=== PATIENT | female | born 1935 | race African-American/Black ===

== ENCOUNTER 2018-02-11 07:09 | Observation (INO) | payer MEDICARE ==
--- NOTE | 2018-02-11 07:44 | RAD ---
SINGLE VIEW OF THE CHEST: COMPARISON: 03/18/17. HISTORY: Chest pain. FINDINGS: A single view of the chest shows a normal-size cardiomediastinal silhouette with atherosclerotic calc ifications in the aorta. There is no evidence of consolidation, mass, or pleural effusion. The bone s are unremarkable. IMPRESSION: No evidence of acute cardiopulmonary disease. POS: [facility]
[2018-02-11] MEDS ORDERED: Acetaminophen 325 MG TAB ONE (07:51)
[2018-02-11 07:58] LABS: Hemoglobin 13.4 g/dL (12.0-16.0); Mean Corpuscular Hemoglobin 30.8 pg (27.0-31.0); Mean Corpuscular Volume 93.3 fL (78.0-98.0); Mean Platelet Volume 7.8 fL (7.4-10.4); Platelet Count 201 thou/uL (130-400); RBC Distribution Width 12.5 % (11.5-14.5); Red Blood Cell (RBC) Count 4.35 mill/uL (4.20-5.40); White Blood Cell (WBC) Count 4.7 thou/uL (4.8-10.8)
[2018-02-11 08:11] LABS: ALT (SGPT) 29 U/L (8-55); AST (SGOT) 20 U/L (5-34); Albumin 4.2 g/dL (3.4-4.8); Alkaline Phosphatase 56 U/L (40-150); Anion Gap 13 mmol/L (10-20); BUN (Urea Nitrogen) 12 mg/dL (9.8-20.1); Bilirubin, Total 0.4 mg/dL (0.2-1.2); Calc. Creatinine Clearance 0 mL/min (70-130); Calcium 10.4 mg/dL (7.8-10.44); Carbon Dioxide 28 mmol/L (23-31); Chloride 104 mmol/L (98-107); Estimated GFR-MDRD 70; Globulin 3.5 g/dL (2.4-3.5); Glucose 134 mg/dL (83-110); Protein, Total 7.7 g/dL (6.0-8.3); Sodium 141 mmol/L (136-145)
[2018-02-11 08:15] LABS: Troponin I 0.011 ng/mL (< 0.028)
[2018-02-11 08:19] LABS: Eosinophils 1 % (0-10); Lymphocytes 61 % (21-51); MDiff Complete? YES; Monocytes 2 % (0-10); Neutrophil 35 % (42-75); Reactive Lymphocytes 1 % (0-10)
[2018-02-11 10:49] LABS: Troponin I 0.024 ng/mL (< 0.028)
[2018-02-11 11:02] VITALS: BMI 27.4
[2018-02-11] MEDS ORDERED: Dextrose 5% in Water 1,000 ML IV PRN (11:42)
[2018-02-11] MEDS ORDERED: cloNIDine 0.1 MG TAB PO PRN (11:42)
[2018-02-11] MEDS ORDERED: hydrALAZINE 20 MG/ML VIAL SLOW IVP PRN (11:42)
[2018-02-11] MEDS ORDERED: Milk Of Magnesia 30 ML UDCUP PO PRN (11:42)
[2018-02-11] MEDS ORDERED: Ondansetron ODT 4 MG TAB PO PRN (11:42)
[2018-02-11] MEDS ORDERED: Ondansetron HCl/PF 4 MG/2 ML Vial IVP PRN (11:42)
[2018-02-11] MEDS ORDERED: Loratadine 10 MG TAB PO PRN (11:42)
[2018-02-11] MEDS ORDERED: Loperamide HCl 2 MG CAP PO PRN (11:42)
[2018-02-11] MEDS ORDERED: Dextrose 50% Abboject 50 ML SYRINGE SLOW IVP PRN (11:42)
[2018-02-11] MEDS ORDERED: Zolpidem Tartrate 5 MG TAB PO PRN (11:42)
[2018-02-11] MEDS ORDERED: Artificial Tear Sol 15 ML BOT EA EYE PRN (11:42)
[2018-02-11] MEDS ORDERED: HumaLOG 300 UNITS/3 ML VIAL SC PRN ×2 (11:42)
[2018-02-11] MEDS ORDERED: Sodium Chloride 0.65% Nasal 44 ML BOT EA NARE PRN (11:42)
[2018-02-11] MEDS ORDERED: Acetaminophen 325 MG TAB PO PRN (11:42)
[2018-02-11] MEDS ORDERED: Eucerin (Mineral Oil/Petrolatum,White) 30 gm Jar TOP PRN (11:42)
[2018-02-11] MEDS ORDERED: Mag-Al 1200 mg/1200 mg/30 ML UDCUP PO PRN (11:42)
[2018-02-11] MEDS ORDERED: Senokot 8.6 MG TAB PO PRN (11:42)
[2018-02-11] MEDS ORDERED: Nitroglycerin 0.4 MG TAB (25 Tab Bottle) SL PRN (11:42)
[2018-02-11] MEDS ORDERED: Diabetic Tussin 200 MG/10 ML UDCUP PO PRN (11:42)
[2018-02-11] MEDS ORDERED: Lisinopril 10 MG TAB PO SCH (12:00)
[2018-02-11] MEDS ORDERED: cloNIDine 0.2 MG TAB PO SCH (12:15)
--- NOTE | 2018-02-11 12:38 | HP ---
PRIMARY CARE PHYSICIAN: Dr. Marisol Renae. REASON FOR ADMISSION: Chest pain. HISTORY OF PRESENT ILLNESS: An 82-year-old -[place] female who has underlying history of hyp ertension, diabetes type 2, gastroesophageal reflux disease and dyslipidemia, who came to emergency r oom for evaluation of chest pain. Patient reports that chest pain she was experiencing in substernal and little bit left side, which was sharp in nature. Normally, patient gets pain which is gradually getting worse and gradually getting better, but this pain was acute and sharp in nature. It was rep roducible pain in her chest wall. She reports associated nausea, but no vomiting. There was no rela tion of chest pain with food, respiration or activity. She denies any radiation of pain. She denies any fever, chills, cough. She denies any unusual heavy lifting. The patient was advised by paramed ics to take aspirin that did not relieve her pain. Paramedics gave her nitroglycerin that did not im prove her pain. She was brought to the ER. At that time, she was having similar intensity pain. Deneen cee was hypertensive in the emergency room. Routine evaluation showed nonspecific ST-T changes in ante rolateral lead. Her chest x-ray was normal. Patient's routine blood test was also unremarkable. We are admitting this patient in hospital for rule out acute coronary syndrome. This patient had a stress test done in 2016. At that time, it was normal. Patient is following Dr. Alegre who is her animal chiropractor. The patient denies any headaches. She denies any focal motor or s ensory symptoms. She denies any orthopnea, PND or leg swelling. She denies any dizziness. She does feel intermittent palpitation and for that reason, Dr. Alegre did Holter monitoring couple of time s, which was unremarkable per patient. The patient denies any constipation, diarrhea, melena or james tochezia. She denies any UTI symptoms. REVIEW OF SYSTEMS: The following complete review of systems was negative, unless otherwise mentioned in the HPI or below: Constitutional: Weight loss or gain, ability to conduct usual activities. Skin: Rash, itching. Eyes: Double vision, pain. ENT/Mouth: Nose bleeding, neck stiffness, pain, tenderness. Cardiovascular: Palpitations, dyspnea on exertion, orthopnea. Respiratory: Shortness of breath, wheezing, cough, hemoptysis, fever or night sweats. Gastrointestinal: Poor appetite, abdominal pain, heartburn, nausea, vomiting, constipation, or diarr hea. Genitourinary: Urgency, frequency, dysuria, nocturia. Musculoskeletal: Pain, swelling. Neurologic/Psychiatric: Anxiety, depression. Allergy/Immunologic: Skin rash, bleeding tendency. Please see my HPI for pertinent positive and negative. All other review of systems reviewed and nega tive except as mentioned in the HPI. ALLERGIES: VICODIN. CURRENT HOME MEDICATIONS: Aspirin 325 mg p.o. daily, clonidine 0.2 mg p.o. b.i.d., diazepam 10 mg p. o. daily, Cartia XT 240 mg p.o. b.i.d., Amaryl 2 mg p.o. daily, lisinopril 10 mg p.o. b.i.d., metform in 500 mg p.o. b.i.d., Toprol-XL 50 mg p.o. b.i.d., minoxidil 10 mg in the morning and 5 mg in the ev ening, Lyrica 50 mg p.o. b.i.d., Zocor 10 mg p.o. at bedtime. PAST MEDICAL HISTORY: Hypertension, diabetes type 2, dyslipidemia, gastroesophageal reflux disease. PAST PSYCHIATRIC HISTORY: Anxiety. PAST SURGICAL HISTORY: Hysterectomy, cholecystectomy, umbilical hernia repair, bladder surgery. SOCIAL HISTORY: Patient lives at home. She is . No history of tobacco, alcohol or illicit d rug abuse. FAMILY HISTORY: Mother from heart attack by age of 75 and hypertension runs among several famil y members. EMERGENCY ROOM COURSE: The patient is given Tylenol 975 mg. PHYSICAL EXAMINATION: VITAL SIGNS: On arrival, blood pressure 175/86, pulse 68, respiratory rate 18, temperature 98.1, sat uration 92% on room air, weight 74.8 kilograms. GENERAL: Patient is currently alert, awake, hypertensive, no obvious acute distress. HEAD: Normocephalic, atraumatic. EYES: Pupils round, reactive to light. Extraocular muscle intact. ENT: Oropharynx within normal limits. Moist mucous membranes, no oral lesion, no pharyngeal erythem a, no exudate. NECK: Supple, no JVD, no thyromegaly, no carotid bruit. LUNGS: Clear to auscultation without any rhonchi or rales. CARDIOVASCULAR: S1 and S2 appears regular. No murmur, no gallop, no rub. CHEST WALL: On examination, patient does have reproducible pain over the left side parasternal area. ABDOMEN: Soft, bowel sounds present. No epigastric tenderness, no Lang sign, no guarding, no rigi dity, no rebound, no suprapubic tenderness. BACK: Examination unremarkable, no CVA tenderness. EXTREMITIES: Upper extremity passive movement of all joints are normal. Lower extremities: No kurt a. Good peripheral pulsation, no calf tenderness. Good distal pulsation. SKIN: No skin rash. HEMATOLOGICAL SYSTEM: No lymphadenopathy. PSYCHIATRIC: Normal affect. NEUROLOGIC: The patient is alert and oriented x3. Cranial nerves II-XII intact. Motor and sensatio n within normal limits. No focal neurological deficit noted. IMAGING DATA AND SIGNIFICANT LABORATORY DATA: EKG; normal sinus rhythm, nonspecific ST-T changes and T inversion in lateral leads. No change from previous. Chest x-ray based on my review, no acute ca rdiopulmonary process. CBC: WBC 4.7, hemoglobin 13.4, platelet 201. BMP: Sodium 141, potassium 4. 0, chloride 104, carbon dioxide 28, anion gap 13, BUN 12, creatinine 0.93, glucose 134, calcium 10.4. LFT: AST 20, ALT 29, alkaline phosphatase 56, albumin 4.2. Cardiac enzymes negative x2. ASSESSMENT AND PLAN/IMPRESSION: 1. Acute chest pain. This patient has two types of chest pain. One is gradually getting worse and gradually getting better, but this sharp acute chest pain is new to her and based on examination, mos t likely she has costochondritis. This patient is extremely concerned about her heart and that is wh y we will consider doing serial cardiac enzymes and rule out acute coronary syndrome. We will monito r on telemetry floor. We will perform exercise Cardiolite stress test for diagnostic reason. We kenia l check lipid profile tomorrow morning. We will control her blood pressure and we will resume select ed home medication. Healthy lifestyle measures discussed with the patient. Does not suspect any aci d reflux because current chest pain has no association with food. It is not also classic for costoch ondritis as well as not classic for angina. It is completely atypical and that is why we need to do more investigation to find out the etiology. 2. Hypertension. Currently, not well controlled because patient did not take her home medication. We will resume her clonidine 0.2 mg twice daily, Cartia XT 240 mg p.o. b.i.d., lisinopril 10 mg p.o. b.i.d. and Toprol-XL 50 mg p.o. b.i.d. along with minoxidil 10 mg in the morning and 5 mg in evening. We will use p.r.n., clonidine and hydralazine on p.r.n. basis. 3. Diabetes type 2. We will continue Amaryl 2 mg p.o. daily, metformin 500 mg p.o. b.i.d., insulin as per sliding scale per protocol. Diabetic diet will be given. 4. Dyslipidemia. Check lipid profile and continue Zocor 10 mg p.o. at bedtime. 5. Anxiety. Continue Valium 10 mg p.o. daily. 6. Chronic intermittent palpitation. Patient is already on cardiac XT and Toprol-XL. Per patient, she had two times Holter monitoring by Dr. Alegre, which was unremarkable. 7. Peripheral neuropathy. Continue Lyrica 50 mg twice daily. 8. Deep venous thrombosis prophylaxis not needed because we are expecting discharge in 24 hours. 9. Gastrointestinal prophylaxis, Pepcid 20 mg p.o. b.i.d. 10. Code status: The patient is FULL CODE. Patient's is surrogate decision maker. Disposition plan based on clinical course and stress test result. Plan of care discussed with the jerad calvo in detail.
[2018-02-11] MEDS: Nitroglycerin 2% Ointment 1 INCH/1 GM Packet TOP SCH ×2 (13:00→21:15)
[2018-02-11] MEDS ORDERED: ADENOSINE 60 MG/20 ML VIAL ONE (13:26)
--- NOTE | 2018-02-11 15:57 | NM ---
NUCLEAR MEDICINE CARDIAC PERFUSION EXAMINATION WITH EJECTION FRACTION: COMPARISON: 10/30/15. HISTORY: This is an 82-year-old female with chest pain, hypertension, diabetes, and dyslipidemia. TECHNIQUE: A single-day nuclear medicine cardiac perfusion examination was performed. Rest images were obtained using 11 mCi of Technetium 99m sestamibi. Stress images were obtained using 32 mCi of Technetium 99 m sestamibi and adenosine. FINDINGS: Tomographic images showed no fixed or reversible perfusion defects. Gated images show normal wall mo tion with an ejection fraction of greater than 70%. EDV is 58 mL. LHR is 0.5. TID is 1.1. IMPRESSION: Normal exam. POS: [facility]
[2018-02-11] MEDS: metFORMIN 500 MG TAB PO SCH (16:39)
[2018-02-11] MEDS: Pregabalin 50 MG CAP PO SCH (20:19)
[2018-02-11] MEDS: cloNIDine 0.2 MG TAB PO SCH (20:20)
[2018-02-11] MEDS: Famotidine 20 MG TAB PO SCH (20:20)
[2018-02-11] MEDS: Lisinopril 10 MG TAB PO SCH (20:21)
[2018-02-11] MEDS ORDERED: Simvastatin 5 MG TAB PO SCH (21:00)
[2018-02-11] MEDS ORDERED: Minoxidil 10 MG TAB PO SCH (21:00)
[2018-02-12] MEDS: Nitroglycerin 2% Ointment 1 INCH/1 GM Packet TOP SCH (06:23)
[2018-02-12 06:50] LABS: Cardiac Risk 3.2 (Less than 4.5)
[2018-02-12 07:46] VITALS: BP 136/79; TEMP 98.5
[2018-02-12] MEDS ORDERED: Glimepiride 2 MG TAB PO SCH (08:00)
[2018-02-12] MEDS ORDERED: Aspirin 325 MG TAB PO SCH (09:00)
[2018-02-12] MEDS ORDERED: Minoxidil 10 MG TAB PO SCH (09:00)
[2018-02-12] MEDS: Famotidine 20 MG TAB PO SCH (09:10)
[2018-02-12] MEDS: metFORMIN 500 MG TAB PO SCH (09:11)
[2018-02-12] MEDS: cloNIDine 0.2 MG TAB PO SCH (09:11)
[2018-02-12] MEDS: Lisinopril 10 MG TAB PO SCH (09:11)
[2018-02-12] MEDS: Pregabalin 50 MG CAP PO SCH (09:12)
--- NOTE | 2018-02-12 11:45 | DIS ---
PRIMARY CARE PHYSICIAN: Marisol Renae M.D. DATE OF ADMISSION: 02/11/2018. DATE OF DISCHARGE: 02/12/2018. DISCHARGE DISPOSITION: Home. PRIMARY DISCHARGE DIAGNOSIS: Chest pain, ruled out acute coronary syndrome, likely the gastroesophag eal reflux disease. SECONDARY DISCHARGE DIAGNOSES: Diabetes type 2, hypertension, dyslipidemia, chronic palpitation, per ipheral neuropathy. PRIMARY PROCEDURE/OPERATION: None. RADIOLOGICAL INVESTIGATION: Chest x-ray normal, stress test negative. SIGNIFICANT LABORATORY DATA: WBC 4.7, hemoglobin 13.4, platelet 201. LDL 65, cholesterol 118, trigl ycerides 78, HDL 37. Cardiac enzymes negative x3. BMP and LFT normal. DISCHARGE MEDICATIONS: Aspirin 325 mg p.o. daily, clonidine 0.2 mg p.o. b.i.d., Valium 10 mg p.o. da nazia p.r.n., Cartia XT 240 mg p.o. b.i.d., Amaryl 2 mg p.o. daily, lisinopril 10 mg p.o. b.i.d., metfo rmin 500 mg p.o. b.i.d., Toprol-XL 50 mg p.o. b.i.d., minoxidil 10 mg in the morning and 5 mg in even ing, Protonix 40 mg p.o. daily, Lyrica 50 mg p.o. b.i.d., Zocor 10 mg p.o. at bedtime. CONTRAINDICATIONS: None. CODE STATUS: FULL CODE. INPATIENT CONSULTANTS: None. ALLERGIES: HYDROCODONE. DISCHARGE PLAN: Post hospital, the patient will follow up with primary care physician in 1 week. HOSPITAL COURSE: An 82-year-old female who was admitted by me yesterday for chest pain. Please see my HPI for further details. Her chest pain description was atypical. We did serial cardiac enzyme a nd ruled out acute coronary syndrome to rule out underlying ischemia. We did stress test that also c angel back negative. While in hospital, we continued all her home medication as well as upon discharge , we continued similar home medication. We suspected her chest pain to be due to gastroesophageal re flux disease and that is why we started Protonix therapy. This morning, I have seen and examined the patient at bedside. The patient was not having any compla ints. Her chest pain was resolved. Her telemetry remained unremarkable. All investigation is normal. PHYSICAL EXAMINATION: VITAL SIGNS: Today, temperature 98.5, pulse 61, respiratory rate 18, saturation 96%, blood pressure 136/79, weight 165 pounds. GENERAL: The patient is currently alert, awake, no acute distress. HEAD: Normocephalic, atraumatic. EYES: Pupils round, reactive to light. Extraocular muscle intact . ENT: Oropharynx within normal limits. Moist mucous membranes, no oral lesion, no pharyngeal eryt james, no exudate. NECK: Supple, no JVD, no thyromegaly, no carotid bruit. LUNGS: Clear to auscultation without any rhonchi or rales. CARDIAC: S1, S2 regular without any murmur. ABDOMEN: Soft and benign. EXTREMITIES: No edema. NEUROLOGIC: Nonfocal examination. All review of system reviewed with her and negative. All new medication prescription sent to her [facility]. The patient is stable for discharge today.
== END 2018-02-12 09:53 | disposition home or self-care (01) ==
LOC: ERS 07:09 → 2SW 10:44
PROVIDERS: ADMIT Internal Medicine; ATTEND Internal Medicine
DX: R07.9 Chest pain, unspecified (principal); E78.5 Hyperlipidemia, unspecified; E11.42 Type 2 diabetes mellitus with diabetic polyneuropathy; I10 Essential (primary) hypertension; F41.9 Anxiety disorder, unspecified; Z88.8 Allergy status to other drugs, medicaments and biological substances; Z79.82 Long term (current) use of aspirin; Z79.84 Long term (current) use of oral hypoglycemic drugs; Z79.899 Other long term (current) drug therapy
CPT/HCPCS: 71045; 78452; 80053; 80061; 82553; 82962 ×2; 84484 ×2; 85025; 93005; 93017; 94660; 99285; A9500; G0378; 36415; 36416; J0153

== ENCOUNTER 2018-04-14 13:12 | Outpatient (CLI) | payer MEDICARE | END 2018-04-14 13:13 | disposition home or self-care (01) | LOC: BICMRI 13:12 | PROVIDERS: ATTEND Orthopaedic Surgery | DX: M47.22 Other spondylosis with radiculopathy, cervical region (principal); M50.11 Cervical disc disorder with radiculopathy, high cervical region; M25.78 Osteophyte, vertebrae; M99.81 Other biomechanical lesions of cervical region; G95.29 Other cord compression | CPT/HCPCS: 72141 ==

== ENCOUNTER 2018-07-03 11:25 | Observation (INO) | payer MEDICARE ==
[2018-07-03 11:58] LABS: #Basophils 0.1 thou/uL (0.0-0.2); #Monocytes 0.3 thou/uL (0.11-0.59); #Neutrophils 1.8 thou/uL (1.40-6.50); %Basophils 1.3 % (0.0-1.0); %Lymphocytes 46.3 % (21.0-51.0); %Monocytes 7.8 % (0.0-10.0); %Neutrophils 43.6 % (42.0-75.0); Hemoglobin 14.1 g/dL (12.0-16.0); Mean Corpuscular HGB CONC 32.4 g/dL (32.0-36.0); Mean Corpuscular Hemoglobin 30.6 pg (27.0-31.0); Mean Corpuscular Volume 94.3 fL (78.0-98.0); Mean Platelet Volume 7.9 fL (7.4-10.4); Platelet Count 233 thou/uL (130-400); RBC Distribution Width 12.9 % (11.5-14.5); White Blood Cell (WBC) Count 4.2 thou/uL (4.8-10.8)
[2018-07-03 12:20] LABS: ALT (SGPT) 36 U/L (8-55); AST (SGOT) 34 U/L (5-34); Albumin 4.4 g/dL (3.4-4.8); Alkaline Phosphatase 62 U/L (40-150); Anion Gap 15 mmol/L (10-20); BUN (Urea Nitrogen) 10 mg/dL (9.8-20.1); Bilirubin, Total 0.3 mg/dL (0.2-1.2); CK (CPK) 132 U/L (29-168); Calc. Creatinine Clearance 0 mL/min (70-130); Calcium 10.2 mg/dL (7.8-10.44); Carbon Dioxide 24 mmol/L (23-31); Chloride 104 mmol/L (98-107); Estimated GFR-MDRD 57; Globulin 4.2 g/dL (2.4-3.5); Glucose 257 mg/dL (83-110); Potassium 4.9 mmol/L (3.5-5.1); Protein, Total 8.6 g/dL (6.0-8.3); Sodium 138 mmol/L (136-145)
[2018-07-03 12:21] LABS: CKMB 1.3 ng/mL (0-6.6); Troponin I 0.011 ng/mL (< 0.028)
[2018-07-03] MEDS ORDERED: ISOVUE-370 76%-LOCM 1 ML ONE (12:32)
--- NOTE | 2018-07-03 12:35 | CT ---
BRAIN CT WITHOUT IV CONTRAST: History: 83-year-old female with stroke alert, cannot move right foot. No headache, no slurred speech. No focal mass or midline shift. No intra or extraaxial hemorrhage. Sinuses and mastoids are clear of acute process. IMPRESSION: 1. Unremarkable noncontrast head CT scan. No mass or bleed or other acute process. 2. Report was called to León Willis at 11:58 a.m. POS: [facility]
--- NOTE | 2018-07-03 13:13 | CT ---
HEAD CTA WITH 3D RENDERING NECK CTA WITH 3D RENDERING: History: 83-year-old female with history of stroke alert, right foot weakness, foot drop. FINDINGS: HEAD CTA WITH 3D RENDERING: There are few small calcified plaques within the right and left cavernous carotid region. No evidence for major branch occlusion. No evidence for aneurysm. Vertebral basilar artery is unremarkable. IMPRESSION: Unremarkable head CTA. No evidence for major branch occlusion or aneurysm. NECK CTA WITH 3D RENDERING: There are a few scattered calcified plaques involving the distal right common carotid artery. No hemo dynamically significant stenosis using NASCET criteria. Soft tissue neck appears unremarkable. No ove rt acute osseous abnormality. IMPRESSION: No significant stenotic changes within the right or left vertebral, common carotid artery, or interna l or external carotid arteries in the neck. Findings were discussed with León Willis at 12:20 p.m. [facility] POS: [facility]
--- NOTE | 2018-07-03 13:15 | RAD ---
RADIOGRAPH CHEST 1 VIEW: HISTORY: 83-year-old female with acute stroke symptoms. FINDINGS: There is cardiomegaly. There is no evidence of air space density, pulmonary edema, or pneumothorax. T he lateral costophrenic angles are sharp. IMPRESSION: 1) No acute pulmonary findings. 2) Cardiomegaly without congestive heart failure. brandy POS: [facility]
[2018-07-03] MEDS ORDERED: Ondansetron PF 4 MG/2 ML Vial IVP PRN (15:02)
[2018-07-03] MEDS ORDERED: Dextrose 5% in Water 1,000 ML IV PRN (15:02)
[2018-07-03] MEDS ORDERED: Ondansetron ODT 4 MG TAB PO PRN (15:02)
[2018-07-03] MEDS ORDERED: Enalaprilat Dihydrate 1.25 MG/ML VIAL SLOW IVP PRN (15:02)
[2018-07-03] MEDS ORDERED: hydrALAZINE 20 MG/ML VIAL SLOW IVP PRN (15:02)
[2018-07-03] MEDS ORDERED: Dextrose 50% Abboject 50 ML SYRINGE SLOW IVP PRN (15:02)
[2018-07-03 15:54] LABS: Troponin I Less than 0.010 ng/mL (< 0.028)
[2018-07-03] MEDS: Sodium Chloride 0.9% 1,000 ML IV SCH (16:59)
[2018-07-03] MEDS ORDERED: Acetaminophen 325 MG TAB PO PRN (17:02)
[2018-07-03 18:23] VITALS: BMI 27.2
--- NOTE | 2018-07-03 18:35 | MRI ---
MRI BRAIN WITHOUT CONTRAST: HISTORY: Stroke. Dragging right foot when walking x2 days. COMPARISON: None. TECHNIQUE: MRI brain is performed without intravenous Gadolinium administration. Multisequential, multiplanar i maging is performed. FINDINGS: No hemorrhage on the axial gradient echo sequence. The calvarium has a hypointense T1 marrow signal intensity. Correlate for anemia or marrow infiltrat kamran process. Midline brain parenchymal structures are unremarkable. A partially empty sella is noted. Central arterial flow voids are maintained. Absent restricted diffusion. Partial opacification of the paranasal sinuses and mastoid air cells. No parenchymal mass, mass effect, or midline shift. Age appropriate brain volume. Cortical faustin whi te matter differentiation is preserved. No evidence of hydrocephalus. No significant white matter hyperintensity on the axial T2 or FLAIR sequence. No evidence of restricted diffusion. IMPRESSION: No evidence of restricted diffusion. POS: [facility]
[2018-07-03 18:44] LABS: Troponin I Less than 0.010 ng/mL (< 0.028)
[2018-07-03] MEDS ORDERED: methylPREDNISolone 4 mg Tablet PO SCH (18:45)
[2018-07-03] MEDS: methylPREDNISolone 4 mg Tablet PO SCH ×2 (19:50→22:28)
[2018-07-03] MEDS: Pregabalin 50 MG CAP PO SCH (21:21)
[2018-07-03] MEDS: Lisinopril 10 MG TAB PO SCH (21:22)
[2018-07-03] MEDS: Famotidine 20 MG TAB PO SCH (21:22)
[2018-07-03] MEDS: cloNIDine 0.2 MG TAB PO SCH (21:23)
[2018-07-03] MEDS: Atorvastatin Calcium 40 MG TAB PO SCH (21:23)
--- NOTE | 2018-07-03 21:51 | HP ---
DATE OF ADMISSION: 07/03/2018 PRIMARY CARE PHYSICIAN: Dr. Marisol Renae. PRIMARY GUEST SERVICE TEAM LEADER: Dr. Hunter Alegre. CHIEF COMPLAINT: Right leg weakness. HISTORY OF PRESENT ILLNESS: The patient is an 83-year-old female with diabetes mellitus, type 2; hyp ertension; and hyperlipidemia, currently on 81 mg aspirin; presented to the hospital with above sympt oms. She felt normal last night when she went to sleep. When she woke up, she noticed that she was unable to move her right foot. The right foot felt heavy without significant sensory deficit. She w as unable to walk because of this. No double vision, blurring of vision, facial asymmetry, weakness, numbness of any of her extremities reported. Her NIH score in the ER was 1. A CT scan of the brain was negative. She received 324 mg aspirin in the emergency room. No seizures, headache, recent flu -like symptoms, fall or injuries reported. PAST MEDICAL HISTORY: 1. Diabetes mellitus, type 2. 2. Hypertension. 3. Hyperlipidemia. 4. Gastroesophageal reflux disease. 5. Anxiety. PAST SURGICAL HISTORY: 1. Hysterectomy. 2. Cholecystectomy. 3. Umbilical hernia repair. 4. Bladder surgery. ALLERGIES: The patient is allergic to HYDROCODONE. CURRENT HOME MEDICATIONS: Aspirin 325 mg daily, clonidine 0.2 mg b.i.d., Valium 10 mg daily as neede d, Cardizem extended release 240 mg b.i.d., glimepiride 2 mg daily, lisinopril 10 mg b.i.d., metformi n 500 mg b.i.d., Toprol-XL 100 mg daily, minoxidil 15 mg daily, Zocor 10 mg at bedtime, Lyrica 50 mg b.i.d. SOCIAL HISTORY: The patient currently lives at home with her family. She is . She makes her own decision with the help of her family. She is FULL CODE. No current use of tobacco, alcohol or drug use. FAMILY HISTORY: Mother at age of 75 with heart attack. Hypertension runs in her family. REVIEW OF SYSTEMS: The following complete review of systems was negative, unless otherwise mentioned in the HPI or below: Constitutional: Weight loss or gain, ability to conduct usual activities. Sk in: Rash, itching. Eyes: Double vision, pain. ENT/Mouth: Nose bleeding, neck stiffness, pain, te nderness. Cardiovascular: Palpitations, dyspnea on exertion, orthopnea. Respiratory: Shortness of breath, wheezing, cough, hemoptysis, fever or night sweats. Gastrointestinal: Poor appetite, abdom inal pain, heartburn, nausea, vomiting, constipation, or diarrhea. Genitourinary: Urgency, frequenc y, dysuria, nocturia. Musculoskeletal: Pain, swelling. Neurologic/Psychiatric: Anxiety, depressio n. Allergy/Immunologic: Skin rash, bleeding tendency. PHYSICAL EXAMINATION: VITAL SIGNS: In the emergency room showed temperature 98.9, respirations 20, pulse rate of 84, blood pressure 165/78 with O2 saturation 96% on room air. GENERAL: An 83-year-old female, in no apparent distress. HEENT: Head atraumatic, normocephalic. Sclerae are anicteric. Moist mucous membrane, no oral lesio n. NECK: Supple, no JVD, no carotid bruit. LUNGS: Clear to auscultation bilaterally. HEART: S1, S2 present. Regular rate and rhythm. No murmur, rubs, or gallops appreciated. ABDOMEN: Soft, nontender, bowel sounds present. EXTREMITIES: No edema or calf tenderness. NEUROLOGIC: Cranial nerves II-XII were normal on examination. Power was 5/5 in all extremities exce pt for inability to plantar flex. She was able to dorsiflex to some extent. Sensation to touch was normal bilaterally. [id number] test was normal. PSYCHIATRY: Alert, awake, oriented x3. SKIN: Warm and dry. LYMPH NODES: No palpable lymph nodes in the neck. PERIPHERAL VASCULAR: Radial pulses palpable bilaterally. MUSCULOSKELETAL: No joint swelling or tenderness. LABORATORY AND X-RAY FINDINGS: CBC showed WBC 4.2 with hemoglobin 14.1, hematocrit 43.4, platelet 23 3. Chemistries showed sodium 138, potassium 4.9, chloride 104, bicarbonate 24, BUN 10, creatinine 1. 1, glucose 257. Troponins negative. CT scan of the brain was negative for acute findings. A CT of the [place] and neck was nega tive for significant stenosis. EKG by my review showed sinus rhythm with left axis deviation and nonspecific ST-T wave changes, prob ably repolarization changes. IMPRESSION AND PLAN: 1. Sudden onset of right foot weakness. The patient will be monitored in the stroke unit with a roddy gnosis of suspected transient ischemic attack, rule out cerebrovascular accident. We will obtain MRI of the brain. If MRI is positive for stroke, we will get echocardiogram. Consult Neurology. We wi ll resume all of her home medications. Insulin sliding scale. Deep venous thrombosis prophylaxis. We will consult Physical Therapy. Gentle IV hydration due to contrast bolus in the emergency room. 2. Diabetes mellitus, type 2. We will continue glimepiride and start insulin sliding scale. Hold m etformin for now. 3. Hypertension. We will resume selected home medications for permissive hypertension. 4. Chronic pain syndrome. We will continue Lyrica. 5. Anxiety. We will continue Valium as needed. 6. Hyperlipidemia. We will continue Zocor. 7. Chronic kidney disease, stage 3. We will avoid nephrotoxic agents. Plan of care was discussed with the patient in detail and she stated understanding.
[2018-07-04] MEDS: Insulin Regular 300 UNITS/3 ML VIAL SC PRN ×5 (02:15→22:43)
[2018-07-04 04:51] LABS: #Lymphocytes 0.9 thou/uL (1.20-3.40); #Neutrophils 2.9 thou/uL (1.40-6.50); %Basophils 0.4 % (0.0-1.0); %Eosinophils 0.2 % (0.0-10.0); %Lymphocytes 23.7 % (21.0-51.0); %Neutrophils 74.8 % (42.0-75.0); Hemoglobin 13.1 g/dL (12.0-16.0); Mean Corpuscular Hemoglobin 30.2 pg (27.0-31.0); Mean Corpuscular Volume 94.5 fL (78.0-98.0); Mean Platelet Volume 8.1 fL (7.4-10.4); Platelet Count 227 thou/uL (130-400); RBC Distribution Width 12.9 % (11.5-14.5); Red Blood Cell (RBC) Count 4.33 mill/uL (4.20-5.40); White Blood Cell (WBC) Count 3.9 thou/uL (4.8-10.8)
[2018-07-04 05:25] LABS: Anion Gap 12 mmol/L (10-20); BUN (Urea Nitrogen) 10 mg/dL (9.8-20.1); Calc. Creatinine Clearance 56 mL/min (70-130); Calcium 9.6 mg/dL (7.8-10.44); Carbon Dioxide 24 mmol/L (23-31); Cardiac Risk 3.4 (Less than 4.5); Chloride 108 mmol/L (98-107); Cholesterol 145 mg/dl (< 200 Desired); Estimated GFR-MDRD 75; Glucose 217 mg/dL (83-110); HDL Cholesterol 43 mg/dL (>60 Neg Risk); LDL Cholesterol, Calculated 94 mg/dL; Magnesium 2.1 mg/dL (1.6-2.6); Potassium 4.5 mmol/L (3.5-5.1); Sodium 139 mmol/L (136-145); Triglycerides 42 mg/dL (Less than 150)
[2018-07-04 05:57] LABS: Folate (Folic Acid) 14.8 ng/mL (7.0-31.4)
[2018-07-04] MEDS: Sodium Chloride 0.9% 1,000 ML IV SCH ×2 (06:09→20:44)
[2018-07-04] MEDS ORDERED: Enoxaparin Sodium 40 MG/0.4 ML SYRINGE SC SCH (09:00)
[2018-07-04] MEDS ORDERED: Aspirin 325 mg Enteric Coated Tablet PO SCH (09:00)
[2018-07-04] MEDS: Aspirin 325 MG TAB PO SCH (10:09)
[2018-07-04] MEDS: methylPREDNISolone 4 mg Tablet PO SCH ×3 (10:10→18:14)
[2018-07-04] MEDS: Pregabalin 50 MG CAP PO SCH ×2 (10:10→20:49)
[2018-07-04] MEDS: Minoxidil 10 MG TAB PO SCH (10:12)
[2018-07-04] MEDS: Lisinopril 10 MG TAB PO SCH ×2 (10:13→20:48)
[2018-07-04] MEDS: cloNIDine 0.2 MG TAB PO SCH ×2 (10:14→20:47)
[2018-07-04] MEDS: Famotidine 20 MG TAB PO SCH ×2 (10:14→20:48)
[2018-07-04] MEDS: Enoxaparin Sodium 30 MG/0.3 ML SYRINGE SC SCH (10:15)
[2018-07-04] MEDS: Glimepiride 2 MG TAB PO SCH (10:15)
[2018-07-04] MEDS: Diazepam 5 MG TAB PO PRN (11:58)
--- NOTE | 2018-07-04 17:55 | PDOC.PN ---
- Subjective Encounter Start Date: 07/04/18 Encounter Start Time: 09:00 Patient lying in bed, she reports feeling better today. She reports foot strength starting to improve. She denies chest pain, shortness of breath or no events overnight. - Objective Resuscitation Status: Resuscitation Status FULL:Full Resuscitation MAR Reviewed: Yes Vital Signs & Weight: Vital Signs (12 hours) Temp Pulse Pulse Pulse Resp BP BP 07/04/18 16:00 98.6 F 62 20 07/04/18 11:57 98.7 F 87 16 07/04/18 10:19 90 91 153/86 H 07/04/18 10:14 153/86 H 07/04/18 10:13 153/86 H 07/04/18 10:07 77 153/86 H 07/04/18 09:21 84 90 125/69 07/04/18 08:00 99 F 74 20 BP BP Pulse Ox 07/04/18 16:00 110/66 96 07/04/18 11:57 128/71 97 07/04/18 10:19 162/87 H 07/04/18 10:14 07/04/18 10:13 07/04/18 10:07 07/04/18 09:21 153/86 H 07/04/18 08:00 127/73 96 Weight Weight 163 lb 11.2 oz I&O: 07/03/18 07/04/18 07/05/18 06:59 06:59 06:59 Intake Total 548 240 Balance 548 240 Result Diagrams: 07/04/18 04:18 07/04/18 04:18 Additional Labs: Accuchecks 07/04/18 07/04/18 07/04/18 16:48 10:50 06:04 POC Glucose 283 H 314 H 192 H 07/04/18 07/03/18 02:01 20:09 POC Glucose 202 H 138 H Radiology Reviewed by me: Yes EKG Reviewed by me: Yes Phys Exam - Physical Examination Constitutional: NAD HEENT: PERRLA, moist MMs, sclera anicteric, oral pharynx no lesions Neck: no nodes, no JVD, supple, full ROM Respiratory: no wheezing, no rales, no rhonchi, clear to auscultation bilateral Cardiovascular: RRR, no significant murmur, no rub Gastrointestinal: soft, non-tender, no distention, positive bowel sounds Musculoskeletal: no edema, pulses present Neurological: non-focal, normal sensation, moves all 4 limbs 4+ strength right lower extremity Lymphatic: no nodes Psychiatric: normal affect, A&O x 3 Skin: no rash, normal turgor, cap refill <2 seconds Dx/Plan (1) TIA (transient ischemic attack) Code(s): G45.9 - TRANSIENT CEREBRAL ISCHEMIC ATTACK, UNSPECIFIED Status: Acute (2) DM type 2 (diabetes mellitus, type 2) Status: Chronic (3) Dyslipidemia Code(s): E78.5 - HYPERLIPIDEMIA, UNSPECIFIED Status: Chronic (4) HTN (hypertension) Code(s): I10 - ESSENTIAL (PRIMARY) HYPERTENSION Status: Chronic (5) Peripheral neuropathy Code(s): G62.9 - POLYNEUROPATHY, UNSPECIFIED Status: Chronic - Plan cont current plan of care, PT/OT, DVT proph w/SCDs * Continue current medical management, PT/OT. * Dr Salazar consulted for further evaluation of patient symptoms. * Workup unremarkable, will continue treatment of TIA. * Will discharge once okay with Dr Salazar.
[2018-07-04] MEDS: Atorvastatin Calcium 40 MG TAB PO SCH (20:47)
[2018-07-04] MEDS ORDERED: methylPREDNISolone 4 mg Tablet PO SCH (21:00)
--- NOTE | 2018-07-04 23:27 | CON ---
DATE OF CONSULTATION: 07/04/2018 CONSULTING PHYSICIAN: Hospitalist Service. 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 PLAN: 1. AFO splint. 2. Office followup. HISTORY OF PRESENT ILLNESS: Ms. Alegre is an 83-year-old black female with a known history of diab etes. She awoke yesterday with weakness in her right leg. She had difficulty walking, so she came i nto the hospital for evaluation. There is no associated slurred speech, headache, nausea, vomiting, vertigo, right arm weakness or other neurologic deficits. There is no associated radicular pain in t he leg. She has had some pain in the right buttocks region prior to this. She denies any tingling o r burning. PAST MEDICAL HISTORY: Diabetes. ALLERGIES: None reported. SOCIAL HISTORY: Unremarkable. FAMILY HISTORY: Unremarkable. REVIEW OF SYSTEMS: Otherwise, negative. PHYSICAL EXAMINATION: GENERAL: She is a well-nourished elderly lady, in no distress. HEENT: Within normal limits. NECK: Supple. EXTREMITIES: No cyanosis or edema. NEUROLOGIC: She is alert and appropriate. Her speech is fluent and clear. Cranial nerves are intac t. Motor exam shows weakness of right toe extension, ankle flexion and eversion. Plantar flexion an d inversion appear relatively normal. Sensation was intact to light touch. No abnormal movements we re seen. No tremor dysmetrias present. MRI of the brain was completely unremarkable. The patient had some documented plantar flexion weakness yesterday which seems to have resolved. Her exam at this point shows perineal pattern weakness which I suspect is related to diabetic ischemic n erve injury. The prognosis is relatively good. She should use an AFO until she regains enough ankle flexion strength to avoid falling. I will be happy to follow up with her as an outpatient.
[2018-07-05] MEDS: Diazepam 5 MG TAB PO PRN (02:17)
[2018-07-05] MEDS: Insulin Regular 300 UNITS/3 ML VIAL SC PRN ×2 (06:28→10:45)
[2018-07-05] MEDS: Enoxaparin Sodium 30 MG/0.3 ML SYRINGE SC SCH (08:44)
[2018-07-05] MEDS: Minoxidil 10 MG TAB PO SCH (08:45)
[2018-07-05] MEDS: Aspirin 325 MG TAB PO SCH (08:47)
[2018-07-05] MEDS: Pregabalin 50 MG CAP PO SCH (08:48)
[2018-07-05] MEDS: methylPREDNISolone 4 mg Tablet PO SCH ×2 (08:48→13:18)
[2018-07-05] MEDS: Lisinopril 10 MG TAB PO SCH (08:50)
[2018-07-05] MEDS: Famotidine 20 MG TAB PO SCH (08:51)
[2018-07-05] MEDS: cloNIDine 0.2 MG TAB PO SCH (08:51)
[2018-07-05] MEDS: Glimepiride 2 MG TAB PO SCH (08:52)
[2018-07-05 12:07] VITALS: TEMP 97.7
[2018-07-05] MEDS: Sodium Chloride 0.9% 1,000 ML IV SCH (13:19)
[2018-07-05 13:55] VITALS: BP 121/72
--- NOTE | 2018-07-06 01:08 | DIS ---
DATE OF ADMISSION: 07/03/2018 DATE OF DISCHARGE: 07/05/2018 DISCHARGE DIAGNOSES: 1. Diabetic ischemic nerve injury, stable. 2. Possible transient ischemic attack, stable. 3. Right foot weakness related to diabetic ischemic nerve injury and possible transient ischemic att ack, stable. 4. Diabetes mellitus type 2, stable. 5. Hypertension, stable. 6. Hyperlipidemia, stable. 7. Chronic kidney disease stage 3, stable. CONSULTATIONS: Neurology, Dr. Madhu Salazar. PERTINENT LABORATORY AND DIAGNOSTIC IMAGING: WBC 3.9, RBC 4.33, hemoglobin 13.1, platelet 227. Sodi um 139, potassium 4.5, creatinine 0.87, GFR 75. Magnesium 2.1. AST 34, ALT 36, alkaline phosphatase 62. Creatine kinase 132. CK-MB 1.3. Troponin less than 0.010. Liver panel showed triglycerides 4 2, cholesterol 145, LDL 94, HDL 43. Vitamin B12 of 705. Folate 14.8. Chest x-ray showed no acute p ulmonary findings. Brain CT was unremarkable and showed no mass or bleed or other acute process. He ad CTA was unremarkable head CTA with no evidence of major branch occlusion or aneurysm, neck CTA vicente wed no significant stenotic changes within the right or left vertebral, common carotid artery or inte rnal or external carotid arteries in the neck. MRI of brain without contrast showed no evidence of r estrictive diffusion. HOSPITAL COURSE: Ms. Alegre is a pleasant, 83-year-old female, who had presented to [facility] with right foot weakness. She has stated that the symptoms woke her up out of he r deep sleep. She had denied any chest pain, shortness of breath, abdominal pain, or any leg pain at that time. She was unable to walk due to symptoms. However, she had denied any double vision, blur red vision or facial weakness. Her NIH score in the ER was 1. She was admitted under observation fo r CVA rule out, a CT of brain was negative. A CTA of head and neck was unremarkable. MRI was also u nremarkable. She had no seizure, headache or weakness during hospital course. Vital signs remained stable. Neurology, Dr. Salazar was consulted for further evaluation. he had concerned for diabetic ischemic nerve injury; therefore, recommended AFO. Throughout the hospital course, plantar infection weakness had improved. Dr. Salazar determined that the patient was stable for discharge home with o utpatient followup in his office in 1 month. She was seen and examined prior to discharge. She had denied any complaints of chest pain, shortness of breath or abdominal pain. She was fitted for AFO p rior to discharge, she was instructed to continue her home medications and followup with Dr. Salazar as outpatient. She had verbalized her understanding for discharge plan, she was determined to be med ically stable for discharge on 07/05/2018. internal audit senior manager was consulted due to physical therapy workin g with the patient and recommended that home health including physical therapy services as outpatient . These services were further arranged prior to discharge. DISCHARGE MEDICATIONS: 1. Clonidine HCL 0.2 mg oral twice daily. 2. Aspirin 325 mg oral daily. 3. Minoxidil 15 mg oral every morning. 4. Simvastatin 10 mg oral at bedtime. 5. Lyrica 50 mg oral twice daily. 6. Metoprolol succinate 100 mg oral daily. 7. Metformin HCL 500 mg oral twice daily with meals. 8. Lisinopril 10 mg oral twice daily. 9. Diltiazem 240 mg oral twice daily. 10. Valium 10 mg oral daily as needed for palpitations. 11. Amaryl 2 mg oral every morning with breakfast. FOLLOWUP: The patient was instructed to follow up with her PCP, Dr. Marisol Renae in 1-2 weeks, she is also to follow up with her neurologist, Dr. Salazar, in 1 month. CONDITION ON DISCHARGE: Stable. ACTIVITY: As tolerated with AFO on right foot, with assistance with physical therapy and home health . DIET: Diabetic diet. CODE STATUS: FULL CODE. DISPOSITION: Home with home health and physical therapy services, 07/05/2018.
[2018-07-06] MEDS ORDERED: methylPREDNISolone 4 mg Tablet PO SCH (08:00)
[2018-07-07] MEDS ORDERED: methylPREDNISolone 4 mg Tablet PO SCH (08:00)
--- NOTE | 2018-07-07 17:05 | EKG ---
Test Reason : Blood Pressure : / mmHG Vent. Rate : 075 BPM Atrial Rate : 075 BPM P-R Int : 184 ms QRS Dur : 082 ms QT Int : 380 ms P-R-T Axes : 016 -23 105 degrees QTc Int : 424 ms Normal sinus rhythm Inferior infarct , age undetermined Abnormal ECG Confirmed by CHUCKY PARRISH ([id number]), film editor supervisor WEI OBANDO ([id number]) on 07/07/2018 5:04:20 PM Referred By: Confirmed By:CHUCKY PARRISH
[2018-07-08] MEDS ORDERED: methylPREDNISolone 4 mg Tablet PO SCH (08:00)
== END 2018-07-05 15:24 | disposition home health service (06) ==
LOC: ERS 11:25 → 2SE 16:03 → INTOOBSV 16:03
PROVIDERS: ADMIT Internal Medicine; ATTEND Internal Medicine
DX: E11.41 Type 2 diabetes mellitus with diabetic mononeuropathy (principal); I12.9 Hypertensive chronic kidney disease with stage 1 through stage 4 chronic kidney disease, or unspecified chronic kidney disease; E11.22 Type 2 diabetes mellitus with diabetic chronic kidney disease; N18.3 Chronic kidney disease, stage 3 (moderate); K21.9 Gastro-esophageal reflux disease without esophagitis; E78.5 Hyperlipidemia, unspecified; F41.9 Anxiety disorder, unspecified; G89.4 Chronic pain syndrome; Z79.82 Long term (current) use of aspirin; Z79.84 Long term (current) use of oral hypoglycemic drugs; Z79.899 Other long term (current) drug therapy; Z88.5 Allergy status to narcotic agent
CPT/HCPCS: 70450; 70496; 70498; 70551; 71045; 80048; 80053; 80061; 82550; 82553; 82607; 82746; 82962 ×3; 83735; 84484 ×2; 85025 ×2; 93005; 96360; 96361 ×2; 96372 ×2; 97110; 97116 ×2; 97139 ×3; 97530 ×3; 99285; G0378; G8978; G8979; G8987; G8988; 36415; 36416; J1650; J1815

== ENCOUNTER 2019-01-24 05:19 | Observation (INO) | payer MEDICARE ==
[2019-01-24] MEDS ORDERED: Acetaminophen 500 MG TAB ONE (05:55)
[2019-01-24 06:29] LABS: #Basophils 0.1 thou/uL (0.0-0.2); #Eosinphils 0.1 thou/uL (0.0-0.7); #Lymphocytes 2.3 thou/uL (1.20-3.40); #Monocytes 0.5 thou/uL (0.11-0.59); #Neutrophils 2.2 thou/uL (1.40-6.50); %Basophils 1.6 % (0.0-1.0); %Eosinophils 1.4 % (0.0-10.0); %Lymphocytes 44.8 % (21.0-51.0); %Monocytes 9.3 % (0.0-10.0); %Neutrophils 42.9 % (42.0-75.0); Hemoglobin 12.6 g/dL (12.0-16.0); Mean Corpuscular HGB CONC 32.9 g/dL (32.0-36.0); Mean Corpuscular Hemoglobin 30.5 pg (27.0-31.0); Mean Corpuscular Volume 92.8 fL (78.0-98.0); Mean Platelet Volume 8.1 fL (7.4-10.4); Platelet Count 221 thou/uL (130-400); RBC Distribution Width 13.1 % (11.5-14.5); Red Blood Cell (RBC) Count 4.12 mill/uL (4.20-5.40); White Blood Cell (WBC) Count 5.1 thou/uL (4.8-10.8)
[2019-01-24 06:51] LABS: ALT (SGPT) 22 U/L (8-55); AST (SGOT) 17 U/L (5-34); Albumin 4.1 g/dL (3.4-4.8); Alkaline Phosphatase 64 U/L (40-150); Anion Gap 13 mmol/L (10-20); BUN (Urea Nitrogen) 11 mg/dL (9.8-20.1); Bilirubin, Total 0.3 mg/dL (0.2-1.2); Calc. Creatinine Clearance 0 mL/min (70-130); Calcium 9.7 mg/dL (7.8-10.44); Carbon Dioxide 27 mmol/L (23-31); Chloride 106 mmol/L (98-107); Estimated GFR-MDRD 73; Globulin 3.1 g/dL (2.4-3.5); Glucose 169 mg/dL (83-110); Potassium 3.6 mmol/L (3.5-5.1); Protein, Total 7.2 g/dL (6.0-8.3); Sodium 142 mmol/L (136-145)
[2019-01-24 07:14] LABS: CKMB 0.9 ng/mL (0-6.6)
[2019-01-24] MEDS ORDERED: Nitroglycerin 0.4 MG TAB (25 Tab Bottle) PO PRN (07:56)
--- NOTE | 2019-01-24 08:07 | RAD ---
THREE VIEWS LEFT SHOULDER: INDICATION: Pain. FINDINGS: There is no fracture or dislocation of the left shoulder. 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 IMPRESSION: No acute osseous abnormality of the left shoulder. POS: NWK
[2019-01-24] MEDS ORDERED: Aspirin 325 MG TAB ONE (08:12)
[2019-01-24] MEDS ORDERED: Dexamethasone 10 MG/ML VIAL ONE (08:12)
[2019-01-24] MEDS ORDERED: Aspirin 325 mg Enteric Coated Tablet PO SCH (09:00)
[2019-01-24] MEDS ORDERED: Enoxaparin Sodium 40 MG/0.4 ML SYRINGE SC SCH (09:00)
--- NOTE | 2019-01-24 09:13 | HP ---
PRIMARY CARE DOCTOR: Dr. Sarita Gonzales. Referred to [facility] by [facility]. The patient woke up this morning with severe pain in her left upper arm. She said it was numb like. She said it was an 8 to begin with. She still has some. It is about a 6 now. No shortness of breath. No sweats. She says she was nauseated. PAST MEDICAL HISTORY: Pertinent for diabetes mellitus type 2, hypertension, dyslipidemia, gastroesophageal reflux disease, and anxiety. PAST SURGICAL HISTORY: Hysterectomy, cholecystectomy, umbilical hernia repair, and bladder surgery. ALLERGIES: TO HYDROCODONE. CURRENT MEDICATIONS: 1. Aspirin 325 mg a day. 2. Metformin 500 mg twice a day. 3. Clonidine 0.2 mg twice a day. 4. Lisinopril 10 mg twice a day. 5. Metoprolol 100 mg a day. 6. Amaryl 4 mg a day. 7. Cartia XT 240 mg twice a day. 8. Lyrica 50 mg twice a day. 9. Minoxidil 15 mg a day. FAMILY HISTORY: Mother at 75 of coronary artery disease. Hypertension in multiple members. Lives at home with her family. , makes her own decisions. Full code status. is surrogate decision maker. SOCIAL HISTORY: No tobacco, alcohol, or drug use. REVIEW OF SYSTEMS: GENERAL: No headaches, dizziness, or fainting. EYES: No double vision, blurred vision, or flashing light. EAR, NOSE, AND THROAT: No ear pain or drainage. No nasal bleeding or trouble swallowing. CARDIAC: No anterior chest pain, pressure, etc. No dyspnea on exertion. No orthopnea. RESPIRATION: No cough, wheezing, or asthma. GASTROINTESTINAL: Some nausea this morning. No vomiting. No abdominal pain, diarrhea, or constipation. GENITOURINARY: No hematuria or dysuria. MUSCULOSKELETAL: No pain or swelling in arms or legs other than that mentioned in the present illness. NEUROLOGICAL: No strokes, seizures, or focal weakness. PSYCHIATRIC: The patient has periods of anxiety. SKIN: No bruising, bleeding, or rash. HEME/LYMPH: No tender or swollen lymph nodes in axilla, inguinal, or cervical area. PHYSICAL EXAMINATION: GENERAL: Alert, oriented, and cooperative, in no distress. Complaining of left arm pain. VITAL SIGNS: Blood pressure 139/79, pulse 72, respirations 16, O2 saturation 97 on room air, and temperature 98.2. HEAD, EYES, EARS, NOSE, AND THROAT: Reveal pupils are equal, round, and reactive to light. Extraocular movements are intact. Sclerae are white. Tympanic membranes are clear. Nose, clear. Throat is clear. NECK: Supple without jugular venous distention, adenopathy, or thyromegaly. CHEST: Clear to auscultation and percussion. HEART: Regular rate and rhythm. First and second heart sounds are clear. There are no appreciated murmurs or gallops. ABDOMEN: Soft. Bowel sounds are normal. There is no hepatosplenomegaly. No mass. No rebound. No bruits. EXTREMITIES: Reveal no cyanosis, clubbing, or edema. PULSES: Carotid, radial, femoral, and dorsalis pedis pulses intact. SKIN: Warm and dry without bruises or rash. HEME/LYMPH: No tender or swollen lymph nodes in axilla, inguinal, cervical area. NEUROLOGICAL: Cranial nerves 2 through 12 are intact. Deep tendon reflexes are symmetric. DIAGNOSTIC STUDIES: CARDIOVASCULAR STUDIES: EKG; regular sinus rhythm with nonspecific T-wave changes, apparently unchanged from previous, reviewed by me. LABORATORY RESULTS: CBC; normal. Comp metabolic profile; blood sugar 169. Troponin 0.037. I have spoken with Dr. Alegre this morning. She has multiple cardiac catheterizations. She has had a negative stress test at [facility] last summer. She has had a negative stress test this year. Enzymes will be monitored. Unless there is a sharp upward trend, she will likely be discharged later this afternoon on her current medications. ADMITTING DIAGNOSES: Left arm pain, elevated troponin, diabetes mellitus type 2 , hypertension, dyslipidemia. Job ID: [id number] [facility]
[2019-01-24 09:22] VITALS: BMI 26.9
[2019-01-24 09:23] VITALS: TEMP 98
[2019-01-24 10:52] LABS: Troponin I 0.015 ng/mL (< 0.028)
[2019-01-24 12:53] VITALS: BP 183/87
[2019-01-24 12:55] LABS: Troponin I 0.012 ng/mL (< 0.028)
[2019-01-24] MEDS ORDERED: Diazepam 5 MG TAB PO PRN (13:06)
--- NOTE | 2019-01-24 15:15 | DIS ---
DATE OF ADMISSION: 01/24/2019 DATE OF DISCHARGE: 01/24/2019 PRIMARY CARE PHYSICIAN: Dr. Gonzales. FINAL DIAGNOSES: Left arm pain, diabetes mellitus type 2, hypertension, dyslipidemia. DISCHARGE MEDICATIONS: 1. Metformin 500 mg twice a day. 2. Diltiazem 240 mg twice a day. 3. Valium 10 mg a day. 4. Aspirin 325 mg a day. 5. Minoxidil 15 mg a day. 6. Metoprolol 200 mg a day. 7. Lisinopril 10 mg b.i.d. 8. Clonidine 0.2 mg b.i.d. 9. Lyrica 50 mg b.i.d. ALLERGIES: HYDROCODONE. CODE STATUS: Full. PENDING AT THE TIME OF DISCHARGE: Nothing. DIET: Diabetic. CONSULTATIONS: Verbal consultation with Dr. Alegre. PROCEDURES: None. HOSPITAL COURSE: The patient referred to the [facility] by [facility] for cardiac issue. She came in with left arm pain that she rated as an 8. She had woken up bleeding on her arm. An EKG was done, which showed inverted T-waves, I reviewed. She has had inverted T-waves before. The troponin was done, which was minimally abnormal at 0.037. I spoke with Dr. Alegre over the phone. The patient has had multiple stress tests including one this year and multiple cardiac catheterizations, all normal. The patient's arm pain is resolved. Her following two troponins were normal. She is being discharged on her home medicines for outpatient followup with Dr. Gonzales. She has been asked to see Dr. Gonzales in 7 days. Job ID: [id number]
[2019-01-24] MEDS ORDERED: metFORMIN 500 MG TAB PO SCH (17:00)
[2019-01-24] MEDS ORDERED: Lisinopril 10 MG TAB PO SCH (21:00)
[2019-01-24] MEDS ORDERED: cloNIDine 0.2 MG TAB PO SCH (21:00)
[2019-01-24] MEDS ORDERED: Pregabalin 50 MG CAP PO SCH (21:00)
[2019-01-24] MEDS ORDERED: DILTIAZEM HCL 240 MG PO SCH (21:00)
[2019-01-25] MEDS ORDERED: Minoxidil 10 MG TAB PO SCH (09:00)
[2019-01-25] MEDS ORDERED: Aspirin 325 MG TAB PO SCH (09:00)
== END 2019-01-24 16:14 | disposition home or self-care (01) ==
LOC: ERS 05:19 → 2SW 09:16
PROVIDERS: ADMIT Internal Medicine; ATTEND Internal Medicine
DX: M79.602 Pain in left arm (principal); E11.9 Type 2 diabetes mellitus without complications; I10 Essential (primary) hypertension; E78.5 Hyperlipidemia, unspecified; R74.8 Abnormal levels of other serum enzymes; K21.9 Gastro-esophageal reflux disease without esophagitis; M19.012 Primary osteoarthritis, left shoulder; F41.9 Anxiety disorder, unspecified; Z79.84 Long term (current) use of oral hypoglycemic drugs; Z79.82 Long term (current) use of aspirin; Z79.899 Other long term (current) drug therapy; Z88.5 Allergy status to narcotic agent; Z91.018 Allergy to other foods
CPT/HCPCS: 73030; 80053; 82553; 84484 ×2; 85025; 93005; 96372 ×2; 99285; G0378 ×2; 36415; J1100; J1650

== ENCOUNTER 2019-05-03 11:47 | Emergency (ER) | payer MEDICARE ==
[2019-05-03 12:14] LABS: #Basophils 0.1 thou/uL (0.0-0.2); #Monocytes 0.3 thou/uL (0.11-0.59); %Basophils 1.6 % (0.0-1.0); %Eosinophils 1.1 % (0.0-10.0); %Lymphocytes 45.1 % (21.0-51.0); %Monocytes 7.4 % (0.0-10.0); %Neutrophils 44.7 % (42.0-75.0); Hemoglobin 12.8 g/dL (12.0-16.0); Mean Corpuscular HGB CONC 32.9 g/dL (32.0-36.0); Mean Corpuscular Hemoglobin 30.4 pg (27.0-31.0); Mean Corpuscular Volume 92.3 fL (78.0-98.0); Mean Platelet Volume 8.2 fL (7.4-10.4); Platelet Count 199 thou/uL (130-400); Red Blood Cell (RBC) Count 4.21 mill/uL (4.20-5.40); White Blood Cell (WBC) Count 4.4 thou/uL (4.8-10.8)
[2019-05-03 12:44] LABS: ALT (SGPT) 23 U/L (8-55); AST (SGOT) 18 U/L (5-34); Albumin 4.4 g/dL (3.4-4.8); Alkaline Phosphatase 55 U/L (40-150); Anion Gap 15 mmol/L (10-20); BUN (Urea Nitrogen) 12 mg/dL (9.8-20.1); Bilirubin, Total 0.4 mg/dL (0.2-1.2); CK (CPK) 106 U/L (29-168); Calc. Creatinine Clearance 0 mL/min (70-130); Calcium 10.2 mg/dL (7.8-10.44); Carbon Dioxide 21 mmol/L (23-31); Chloride 104 mmol/L (98-107); Estimated GFR-MDRD 61; Globulin 2.7 g/dL (2.4-3.5); Glucose 189 mg/dL (83-110); Lipase 29 U/L (8-78); Potassium 4.4 mmol/L (3.5-5.1); Protein, Total 7.1 g/dL (6.0-8.3); Sodium 136 mmol/L (136-145)
--- NOTE | 2019-05-03 12:44 | RAD ---
XR Chest 1 View Portable HISTORY: Heart palpitations. COMPARISON: 07/03/2018 exam. FINDINGS: Heart size is enlarged with atherosclerotic changes of the aorta. The lungs are clear of in filtrates. There are no signs of failure. IMPRESSION: Cardiomegaly. Stable chest.
[2019-05-03] MEDS ORDERED: Mag-Al 1200 mg/1200 mg/30 ML UDCUP ONE (13:42)
[2019-05-03] MEDS ORDERED: Lidocaine Viscous Sol 2% 15 ml UD Cup ONE (13:42)
[2019-05-03] MEDS ORDERED: Lidocaine 2% Viscous Solution 20 ML, Aluminum & Magnesium Hydroxide 30 ML, Donnatal Eli... SSW SCH (14:00)
--- NOTE | 2019-05-05 13:38 | EKG ---
Test Reason : ER INDICATION Blood Pressure : / mmHG Vent. Rate : 077 BPM Atrial Rate : 077 BPM P-R Int : 186 ms QRS Dur : 094 ms QT Int : 366 ms P-R-T Axes : 026 -29 131 degrees QTc Int : 414 ms Normal sinus rhythm Minimal voltage criteria for LVH, may be normal variant T wave abnormality, consider lateral ischemia Abnormal ECG Confirmed by LASHAUN PINTO D.O. ([id number]), publication editor FENG AMADOR ([id number]) on 05/05/2019 1:38:40 PM Referred By: Confirmed By:LASHAUN PINTO D.O.
== END 2019-05-03 17:30 | disposition home or self-care (01) ==
LOC: ERS 11:47
DX: R07.89 Other chest pain (principal); R00.2 Palpitations; I10 Essential (primary) hypertension; I20.9 Angina pectoris, unspecified; E11.9 Type 2 diabetes mellitus without complications; E78.00 Pure hypercholesterolemia, unspecified; K21.9 Gastro-esophageal reflux disease without esophagitis
CPT/HCPCS: 36415; 71045; 80053; 82550; 83690; 84484; 85025; 93005; 94760

== ENCOUNTER 2020-01-17 01:13 | Emergency (ER) | payer MEDICARE ==
[2020-01-17 01:45] LABS: Hemoglobin 12.4 g/dL (12.0-16.0); Mean Corpuscular HGB CONC 31.8 g/dL (32.0-36.0); Mean Corpuscular Hemoglobin 30.5 pg (27.0-31.0); Mean Corpuscular Volume 95.9 fL (78.0-98.0); Mean Platelet Volume 7.9 fL (7.4-10.4); Platelet Count 242 thou/uL (130-400); RBC Distribution Width 13.3 % (11.5-14.5); Red Blood Cell (RBC) Count 4.08 mill/uL (4.20-5.40)
[2020-01-17 02:04] LABS: Lymphocytes 55 % (21-51); MDiff Complete? YES; Monocytes 8 % (0-10); Neutrophil 36 % (42-75); Reactive Lymphocytes 1 % (0-10)
[2020-01-17 02:08] LABS: ALT (SGPT) 22 U/L (8-55); AST (SGOT) 24 U/L (5-34); Albumin 3.8 g/dL (3.4-4.8); Alkaline Phosphatase 54 U/L (40-110); Anion Gap 15 mmol/L (10-20); BUN (Urea Nitrogen) 12 mg/dL (9.8-20.1); Bilirubin, Total 0.3 mg/dL (0.2-1.2); Calc. Creatinine Clearance 0 mL/min (70-130); Calcium 9.4 mg/dL (7.8-10.44); Carbon Dioxide 24 mmol/L (23-31); Chloride 105 mmol/L (98-107); Estimated GFR-MDRD 64; Globulin 3.4 g/dL (2.4-3.5); Glucose 116 mg/dL (83-110); Potassium 4.5 mmol/L (3.5-5.1); Protein, Total 7.2 g/dL (6.0-8.3); Sodium 139 mmol/L (136-145)
[2020-01-17] MEDS ORDERED: Mag-Al 1200 mg/1200 mg/30 ML UDCUP ONE (03:17)
[2020-01-17] MEDS ORDERED: Lidocaine Viscous Sol 2% 15 ml UD Cup ONE (03:17)
--- NOTE | 2020-01-17 08:16 | RAD ---
PORTABLE CHEST 1 VIEW: DATE: 01/17/2020. TIME: 1:32 AM. HISTORY: Chest pain. COMPARISON: 05/03/2019. FINDINGS: The heart is enlarged. There is continued mild elevation of the right hemidiaphragm. The aorta is t ortuous. No lobar consolidation, pneumothoraces, maya pulmonary edema, or pleural effusions is seen . IMPRESSION: No acute process. POS: DAMION
--- NOTE | 2020-01-18 14:20 | EKG ---
Test Reason : Blood Pressure : / mmHG Vent. Rate : 071 BPM Atrial Rate : 071 BPM P-R Int : 174 ms QRS Dur : 080 ms QT Int : 382 ms P-R-T Axes : 022 -27 021 degrees QTc Int : 415 ms Normal sinus rhythm Minimal voltage criteria for LVH, may be normal variant Inferior infarct , age undetermined T wave abnormality, consider lateral ischemia Abnormal ECG No ST elevation/SC Confirmed by RICARDA BALLARD M.D. ([id number]), newspaper copy editor FENG AMADOR ([id number]) on 01/18/2020 2:20:18 PM Referred By: Confirmed By:RICARDA BALLARD M.D.
== END 2020-01-17 03:32 | disposition home or self-care (01) ==
LOC: ERS 01:13
DX: R07.9 Chest pain, unspecified (principal); I20.9 Angina pectoris, unspecified; I10 Essential (primary) hypertension; E11.9 Type 2 diabetes mellitus without complications; E78.00 Pure hypercholesterolemia, unspecified; K21.9 Gastro-esophageal reflux disease without esophagitis; Z79.84 Long term (current) use of oral hypoglycemic drugs; Z79.899 Other long term (current) drug therapy; Z79.82 Long term (current) use of aspirin
CPT/HCPCS: 36415; 71045; 80053; 84484; 85025; 93005

== ENCOUNTER 2020-05-04 19:37 | Emergency (ER) | payer MEDICARE ==
[~2020-05-04 19:37] MED LIST: Iopamidol-370 76% 500 ML 1 ML ONE
--- NOTE | 2020-05-04 20:12 | RAD ---
Exam: Chest one view HISTORY:Chest pain. Abdominal pain. Comparison: 01/17/2020 FINDINGS: Cardiac silhouette:Cardiomegaly. Aorta: Atherosclerosis Pulmonary vessels: Normal Costophrenic angles: Clear LUNGS: No masses or consolidation. Pneumothorax: None Osseous abnormalities: None IMPRESSION: 1. Atherosclerosis 2. No acute cardiopulmonary process.
[2020-05-04] MEDS ORDERED: Ondansetron PF 4 MG/2 ML Vial ONE (20:16)
[2020-05-04 20:17] LABS: #Monocytes 0.4 thou/uL (0.11-0.59); #Neutrophils 2.1 thou/uL (1.40-6.50); %Basophils 0.3 % (0.0-1.0); %Eosinophils 0.7 % (0.0-10.0); %Lymphocytes 44.7 % (21.0-51.0); %Monocytes 8.5 % (0.0-10.0); %Neutrophils 45.9 % (42.0-75.0); Hemoglobin 12.6 g/dL (12.0-16.0); Mean Corpuscular HGB CONC 33.6 g/dL (32.0-36.0); Mean Corpuscular Hemoglobin 31.3 pg (27.0-31.0); Mean Corpuscular Volume 93.1 fL (78.0-98.0); Mean Platelet Volume 8.3 fL (7.4-10.4); Platelet Count 190 thou/uL (130-400); RBC Distribution Width 12.8 % (11.5-14.5); Red Blood Cell (RBC) Count 4.04 mill/uL (4.20-5.40); White Blood Cell (WBC) Count 4.5 thou/uL (4.8-10.8)
[2020-05-04 20:36] LABS: ALT (SGPT) 13 U/L (8-55); AST (SGOT) 12 U/L (5-34); Albumin 3.9 g/dL (3.4-4.8); Alkaline Phosphatase 57 U/L (40-110); Anion Gap 12 mmol/L (10-20); BUN (Urea Nitrogen) 8 mg/dL (9.8-20.1); Bilirubin, Total 0.3 mg/dL (0.2-1.2); Calc. Creatinine Clearance 0 mL/min (70-130); Calcium 9.4 mg/dL (7.8-10.44); Carbon Dioxide 28 mmol/L (23-31); Chloride 106 mmol/L (98-107); Estimated GFR-MDRD 75; Globulin 2.9 g/dL (2.4-3.5); Glucose 116 mg/dL (83-110); Lipase 40 U/L (8-78); Potassium 3.2 mmol/L (3.5-5.1); Protein, Total 6.8 g/dL (6.0-8.3); Sodium 143 mmol/L (136-145)
--- NOTE | 2020-05-04 21:34 | CT ---
EXAM: CT ABDOMEN AND PELVIS HISTORY: Abdominal cramping and diarrhea, x2 days COMPARISON: None. Procedure: Multiple contiguous axial images were obtained and a CT of the abdomen and pelvis with IV contrast. C oronal reformats were performed. FINDINGS: Lower Chest: Chronic changes Vessels: Atherosclerosis. No periaortic fat stranding, aneurysm or dissection. Heart: Normal heart size. No significant pericardial fluid Abdomen: Portal vein:Patent Gallbladder: Surgically absent Liver: Hypodensity in the hepatic dome, likely representing a 0.8 cm cyst. There is subtle hypoattenu ation throughout the liver suggesting possible diffuse hepatic steatosis. No enhancing masses. Pancreas: within normal limits. Spleen: within normal limits. Adrenals: within normal limits. Kidneys: Symmetric enhancement. No obstructive uropathy. Exophytic cyst emanates from the upper pole of the left kidney, measuring 1.8 cm. Peritoneum: No ascites or free air, no fluid collection. Bowel: Limited evaluation due to the lack of oral contrast administration. No evidence of bowel obstr uction. Ileocecal junction is unremarkable. Normal caliber appendix. Scattered fecal material in a nondistended, nondilated colon. Mesentery and Retroperitoneum: No enlarged mesenteric or retroperitoneal lymph nodes. Abdominal Wall: within normal limits. Pelvis: Reproductive Organs: Surgically absent uterus. Pelvis: No mass, lymphadenopathy, free air or free fluid. Bladder: within normal limits. Bones: No lytic or blastic lesions in the osseous structures. Prominent osteophytes in the distal tho racic spine. Vacuum disc phenomenon in the lower lumbar spine. IMPRESSION: No evidence of acute intraabdominal\pelvic abnormality.
[2020-05-04] MEDS ORDERED: Mag-Al 1200 mg/1200 mg/30 ML UDCUP ONE (22:04)
[2020-05-04] MEDS ORDERED: Lidocaine Viscous Sol 2% 15 ml UD Cup ONE (22:04)
[2020-05-04 22:07] LABS: Bilirubin Negative (Negative); Blood, Urine Negative (Negative); Clarity Clear (Clear); Glucose, Urine (Dipstick) Normal (Negative); Ketone, Urine Negative (Negative); Leukocyte Negative Leu/uL (Negative); Nitrite Negative (Negative); Protein, Urine (Dipstick) Negative (Neg-Trace); Specific Gravity, Urine 1.022 (1.002-1.036); Urobilinogen Normal mg/dL (Less than 2); pH, Urine 7.5 (5.0-9.0)
[2020-05-04] MEDS ORDERED: Potassium Chloride 20 MEQ TAB ONE (23:16)
--- NOTE | 2020-05-10 12:56 | EKG ---
Test Reason : Blood Pressure : / mmHG Vent. Rate : 067 BPM Atrial Rate : 067 BPM P-R Int : 166 ms QRS Dur : 086 ms QT Int : 400 ms P-R-T Axes : 059 003 240 degrees QTc Int : 422 ms Normal sinus rhythm Anterior infarct , age undetermined T wave abnormality, consider inferolateral ischemia Abnormal ECG Confirmed by ELBA HAN ([id number]), story editor FENG AMADOR ([id number]) on 05/10/2020 12:55:53 PM Referred By: Confirmed By:ELBA Alvarado
== END 2020-05-04 23:56 | disposition home or self-care (01) ==
LOC: ERS 19:37
DX: R10.13 Epigastric pain (principal); R19.7 Diarrhea, unspecified; I10 Essential (primary) hypertension; I20.9 Angina pectoris, unspecified; E11.9 Type 2 diabetes mellitus without complications; E78.00 Pure hypercholesterolemia, unspecified; K21.9 Gastro-esophageal reflux disease without esophagitis; Z79.82 Long term (current) use of aspirin; Z79.84 Long term (current) use of oral hypoglycemic drugs; Z79.899 Other long term (current) drug therapy
CPT/HCPCS: 36415; 71045; 74177; 80053; 81003; 83690; 84484; 85025; 93005; 96361; 96372; 96374; J0500; J2405; Q9967

== ENCOUNTER 2020-06-12 12:51 | Observation (INO) | payer MEDICARE, OTHER ==
[2020-06-12 13:50] LABS: #Eosinphils 0.1 thou/uL (0.0-0.7); #Lymphocytes 1.7 thou/uL (1.20-3.40); #Monocytes 0.3 thou/uL (0.11-0.59); #Neutrophils 1.9 thou/uL (1.40-6.50); %Basophils 0.9 % (0.0-1.0); %Eosinophils 1.4 % (0.0-10.0); %Lymphocytes 41.5 % (21.0-51.0); %Monocytes 8.3 % (0.0-10.0); %Neutrophils 47.9 % (42.0-75.0); Hemoglobin 12.6 g/dL (12.0-16.0); Mean Corpuscular HGB CONC 33.7 g/dL (32.0-36.0); Mean Corpuscular Hemoglobin 31.8 pg (27.0-31.0); Mean Corpuscular Volume 94.3 fL (78.0-98.0); Mean Platelet Volume 8.5 fL (7.4-10.4); Platelet Count 191 thou/uL (130-400); RBC Distribution Width 12.9 % (11.5-14.5); Red Blood Cell (RBC) Count 3.98 mill/uL (4.20-5.40)
--- NOTE | 2020-06-12 13:58 | RAD ---
CHEST 1 VIEW: Date: 06/12/2020 COMPARISON: 05/04/2020. HISTORY: Chest pain. FINDINGS: Atherosclerosis of aortic knob. Enlarged cardiac silhouette. Pulmonary vessels and hilum are normal. Costophrenic angles are clear. Chronic changes, without mass or consolidation. No pneumothorax or acu te osseous abnormality. IMPRESSION: 1. Chronic changes. 2. Cardiomegaly without evidence of congestive heart failure. 3. Atherosclerosis. POS: AH
[2020-06-12] MEDS ORDERED: Nitroglycerin 2% Ointment 1 INCH/1 GM Packet ONE (14:00)
[2020-06-12] MEDS ORDERED: Aspirin Chewable 81 MG TAB ONE (14:00)
[2020-06-12 14:28] LABS: ALT (SGPT) 15 U/L (8-55); AST (SGOT) 15 U/L (5-34); Albumin 3.8 g/dL (3.4-4.8); Alkaline Phosphatase 63 U/L (40-110); Anion Gap 14 mmol/L (10-20); BUN (Urea Nitrogen) 10 mg/dL (9.8-20.1); Bilirubin, Total 0.4 mg/dL (0.2-1.2); CK (CPK) 62 U/L (29-168); Calc. Creatinine Clearance 0 mL/min (70-130); Calcium 9.2 mg/dL (7.8-10.44); Carbon Dioxide 24 mmol/L (23-31); Chloride 106 mmol/L (98-107); Estimated GFR-MDRD 73; Globulin 2.7 g/dL (2.4-3.5); Glucose 168 mg/dL (83-110); Lipase 26 U/L (8-78); Potassium 4.1 mmol/L (3.5-5.1); Protein, Total 6.5 g/dL (6.0-8.3); Sodium 140 mmol/L (136-145)
[2020-06-12 18:37] LABS: Troponin I 0.011 ng/mL (< 0.028)
[2020-06-12] MEDS ORDERED: Ondansetron PF 4 MG/2 ML Vial IVP PRN (19:45)
[2020-06-12] MEDS ORDERED: Ondansetron ODT 4 MG TAB SL PRN (19:45)
[2020-06-12 20:14] VITALS: BMI 23.5
[2020-06-12] MEDS ORDERED: Dextrose 5% in Water 1,000 ML IV PRN (20:29)
[2020-06-12] MEDS ORDERED: HumaLOG 300 UNITS/3 ML VIAL SC PRN ×2 (20:29)
[2020-06-12] MEDS ORDERED: Dextrose 50% Abboject 50 ML SYRINGE SLOW IVP PRN (20:29)
[2020-06-12] MEDS ORDERED: Diazepam 5 MG TAB PO PRN (20:33)
--- NOTE | 2020-06-12 21:10 | HP ---
PRIMARY CARE PHYSICIAN: Sarita Gonzales DO CHIEF COMPLAINT: Chest pain. HISTORY OF PRESENT ILLNESS: The patient is an 85-year-old female with past medical history significant for hypertension, diabetes, elevated cholesterol, chest pain for 15 years, and palpitations. She presents to the ER today for chest pain that has been fairly consistently waxing and waning for 2 days. She describes it as a dull ache. Exacerbating factors include increased blood pressure. This pain began after her two days ago. She denies any shortness of breath, nausea, vomiting, abdominal pain, contact with sick persons. She states she has been compliant with her medications. Today in the ER, they completed lab work, EKG, chest x-ray. She was given aspirin 324 mg orally and 1-inch of nitroglycerin paste. PAST MEDICAL HISTORY: Hyperlipidemia, hypertension, angina, diabetes type 2, GERD, chronic chest pain, and palpitations. PAST SURGICAL HISTORY: Bladder surgery, hysterectomy, cholecystectomy, and hernia repair. ALLERGIES: VICODIN AND CAFFEINE. MEDICATIONS: 1. Aspirin 325 mg daily. 2. Minoxidil 15 mg once daily. 3. Clonidine 0.2 mg oral twice a day. 4. Lisinopril 10 mg two times a day. 5. Metoprolol 100 mg twice a day. 6. Diazepam 10 mg as needed. 7. Atorvastatin 40 mg once a day. 8. Diltiazem 240 mg twice a day. 9. Metformin 850 mg twice a day. 10. Dicyclomine 10 mg every 12 hours as needed. SOCIAL HISTORY: The patient now lives alone as her two days ago. She denies any smoking, alcohol, or drug use. FAMILY HISTORY: Mother had OK. REVIEW OF SYSTEMS: All other review of systems negative unless noted in HPI. PHYSICAL EXAMINATION: VITAL SIGNS: Blood pressure 144/86, pulse 65, respiratory rate 19, pain 7, O2 saturation 96% on room air. CONSTITUTIONAL: Blood pressure hypertensive. The patient afebrile, appears nontoxic. HEENT: Head; atraumatic, normocephalic. Eyes, PERRLA. Extraocular muscles intact. NECK: Normal range of motion. Trachea midline. RESPIRATORY: Clear to auscultation bilaterally. No rhonchi, wheezes, or rales. CARDIOVASCULAR: Regular rate and rhythm. No rubs, no gallops, no murmurs. ABDOMEN: Nontender. Bowel sounds normal. No distention. No rigidity. No guarding. EXTREMITIES: Lower extremity, 1+ edema to the left. Pedal pulses intact. PSYCHIATRIC: Flat affect. LABORATORY AND IMAGING: EKG shows sinus rhythm, 67 beats per minute. No ectopic beats. Chest x-ray shows chronic changes, cardiomegaly without evidence of CHF and atherosclerosis. White blood cells 4.0, hemoglobin 12.6, hematocrit 37.5. Sodium 140, potassium 4.1, creatinine 0.89, GFR 73, glucose 168. Initial two troponins negative. IMPRESSION AND PLAN: 1. Chronic chest pain. The pain has worsened since her passed and she does describe some shortness of breath with it at times. She also states that this pain happens when her blood pressure rises and she has not had any of her blood pressure medicines yet today. She states Dr. Alegre has worked her up many times for this pain before and she is actually due for a stress test again with him in July. 2. Diabetes mellitus type 2. We will monitor Accu-Cheks a.c. and at bedtime and have available sliding scale insulin. 3. Hypertension. We will restart her home medications. We can see if this brings her any relief once her blood pressure lowers. Monitor her vital signs over 4 hours and watch her on telemetry overnight and also continue to trend her troponins. The patient with GI prophylaxis in place. She wishes to be a full code. Her surrogate decision maker is her daughter, Sabra. This patient has been discussed with Dr. Schroeder. Job ID: [id number] MTDD
[2020-06-12] MEDS: cloNIDine 0.2 MG TAB PO SCH (21:14)
[2020-06-12] MEDS: Lisinopril 10 MG TAB PO SCH (21:14)
[2020-06-12] MEDS: traMADol HCl 50 MG TAB PO PRN (21:18)
[2020-06-12 22:06] LABS: Troponin I Less than 0.010 ng/mL (< 0.028)
[2020-06-13] MEDS: traMADol HCl 50 MG TAB PO PRN (05:55)
[2020-06-13] MEDS ORDERED: metFORMIN 850 MG TAB PO SCH (08:00)
[2020-06-13] MEDS: Lisinopril 10 MG TAB PO SCH (08:56)
[2020-06-13] MEDS: cloNIDine 0.2 MG TAB PO SCH (08:57)
[2020-06-13] MEDS ORDERED: FLU VACC QS2020-21(65YR UP)/PF 240 MCG/0.7 ML SYRINGE IM ONE (09:00)
[2020-06-13] MEDS ORDERED: Atorvastatin Calcium 40 MG TAB PO SCH (09:00)
[2020-06-13] MEDS ORDERED: Minoxidil 10 MG TAB PO SCH (09:00)
[2020-06-13] MEDS ORDERED: Aspirin 325 MG TAB PO SCH (09:00)
[2020-06-13 10:20] VITALS: BP 134/76; TEMP 98.2
[2020-06-13 11:02] LABS: SARS-CoV-2 MS2 Positive; SARS-CoV-2 N Gene Negative; SARS-CoV-2 S Gene Negative; SARS-CoV-2 by NAA Not Detected (NotDetected); SARS-CoV-2 orf1ab Negative
--- NOTE | 2020-06-13 13:09 | DIS ---
DATE OF ADMISSION: 06/12/2020 DATE OF DISCHARGE: 06/13/2020 DISCHARGE DISPOSITION: Home. FOLLOWUP: 1. Follow up with primary care physician, Sarita Gonzales, at [facility]. 2. Follow up with Dr. Alegre in 1 to 2 weeks. DISCHARGE MEDICATIONS: Same as admission medications. The patient was evaluated on the day of discharge. Denies any new complaints. No chest pain, shortness of breath, palpitations reported. Vital signs showed temperature 98.2 with pulse rate of 58, respirations of 20 with blood pressure of 134/76, O2 saturation 100% on room air. BRIEF HOSPITAL COURSE: The patient is an 85-year-old female with hypertension, hyperlipidemia, diabetes mellitus type 2, and chronic chest discomfort, presented to the emergency room with chest discomfort that has been waxing and waning of 2 days duration. The patient is under a lot of stress recently. Her recently . Please refer to the history and physical for further details. The patient was admitted to the hospital with a diagnosis of chest discomfort, rule out acute coronary syndrome. Serial troponins remained negative. The patient is chest pain free at this time. The case was discussed with Cardiology, Dr. Alegre, who recommended outpatient followup. The patient is already scheduled for outpatient stress test. She appears stable for discharge. FINAL DIAGNOSES: 1. Chest discomfort, acute coronary syndrome ruled out. 2. Diabetes mellitus type 2. 3. Hypertension. 4. Hyperlipidemia. 5. Gastroesophageal reflux disease. 6. Anxiety. The patient denies any suicidal ideation. 7. Chronic kidney disease stage 2. SIGNIFICANT LABS: Troponin negative. Sodium 140, potassium 4.1, chloride 106, bicarb 24. The patient understands the above plan of care. Job ID: [id number]
== END 2020-06-13 11:45 | disposition home or self-care (01) ==
LOC: ERS 12:51 → 2NO 16:26
PROVIDERS: ADMIT Internal Medicine; ATTEND Internal Medicine
DX: R07.89 Other chest pain (principal); I12.9 Hypertensive chronic kidney disease with stage 1 through stage 4 chronic kidney disease, or unspecified chronic kidney disease; E11.22 Type 2 diabetes mellitus with diabetic chronic kidney disease; N18.2 Chronic kidney disease, stage 2 (mild); E78.5 Hyperlipidemia, unspecified; K21.9 Gastro-esophageal reflux disease without esophagitis; F41.9 Anxiety disorder, unspecified; Z79.82 Long term (current) use of aspirin; Z79.84 Long term (current) use of oral hypoglycemic drugs; Z79.899 Other long term (current) drug therapy; Z88.5 Allergy status to narcotic agent; Z91.018 Allergy to other foods; Z20.828 Contact with and (suspected) exposure to other viral communicable diseases
CPT/HCPCS: 71045; 80053; 82550; 82962 ×2; 83690; 84484 ×2; 85025; 93005; 99285; G0378 ×3; U0003; 36415; 36416; 87635